=== PATIENT | male | born 1945 | race Caucasian/White ===

== ENCOUNTER 2018-06-18 07:32 | Emergency (ER) | payer OTHER, MEDICARE ==
[2018-06-18] MEDS ORDERED: Lidocaine 2% with EPINEPHrine 1:100,000 20 ML MDV INJECT ONE (07:34)
[2018-06-18] MEDS ORDERED: Take Home: Acetaminophen/HYDROcodone 325-10 MG, 5 Tab Pack PO ONE (07:51)
--- NOTE | 2018-06-18 07:57 | EDM.PDOC ---
ED HPI GENERAL MEDICAL PROBLEM - General Chief Complaint: Laceration Stated Complaint: HEAD INJURY Time Seen by Provider: 06/18/18 07:34 Source of Information: Reports: Patient History Limitations: Reports: No Limitations - History of Present Illness INITIAL COMMENTS - FREE TEXT/NARRATIVE: Patient reports to the ED with complaints of a head laceration after falling and striking his head on a radiator. He also complains of new chest pain after the fall. Worse on inhalation. No current anticoagulation medications except 81 mg ASA daily. No further complaints of abdominal pain, dizziness, confusion , weakness. Has full ROM. Does utilize a walker with ambulation. Brought in by his son. Medical history includes hyperlipidemia, DM II, stent placement 18 years ago, parkinson's, HTN. Onset: Today, Sudden Duration: Intermittent Location: Reports: Head, Chest Severity: Mild Associated Symptoms: Reports: Chest Pain ED ROS GENERAL - Review of Systems Review Of Systems: See Below Constitutional: Reports: No Symptoms HEENT: Reports: No Symptoms Respiratory: Reports: No Symptoms Cardiovascular: Reports: Chest Pain Endocrine: Reports: No Symptoms GI/Abdominal: Reports: No Symptoms : Reports: No Symptoms Musculoskeletal: Reports: No Symptoms Skin: Reports: Wound (2.5 cm laceration) Neurological: Reports: No Symptoms Psychiatric: Reports: No Symptoms Hematologic/Lymphatic: Reports: No Symptoms Immunologic: Reports: No Symptoms ED EXAM, SKIN/RASH Exam: See Below Exam Limited By: No Limitations General Appearance: Alert, WD/WN, No Apparent Distress Eye Exam: Bilateral Eye: EOMI, Normal Inspection, PERRL Ears: Normal TMs Nose: Normal Inspection, Normal Mucosa, No Blood Throat/Mouth: Normal Inspection, Normal Lips, Normal Teeth, Normal Gums, Normal Oropharynx, Normal Voice, No Airway Compromise Head: Atraumatic, Normocephalic Neck: Normal Inspection, Supple, Non-Tender, Full Range of Motion Respiratory/Chest: Other (chest tender) Cardiovascular: Normal Peripheral Pulses GI/Abdominal: Normal Bowel Sounds, Soft, Non-Tender, No Organomegaly, No Distention, No Abnormal Bruit, No Mass Extremities: Normal Inspection, Normal Range of Motion, Non-Tender, No Pedal Edema, Normal Capillary Refill Neurological: Alert, Oriented, CN II-XII Intact, Normal Cognition, Normal Gait, Normal Reflexes, No Motor/Sensory Deficits Psychiatric: Normal Affect, Normal Mood Skin: Warm, Dry, Normal Color, No Rash, Wound/Incision (2.5 cm laceration posterior occiput) Location, Skin: Head Characteristics: Linear Lymphatic: Other (left sided anterior cervical mass - known and non cancerous) ED SKIN PROCEDURES - Laceration/Wound Repair Middle Posterior Head Lac/Wound length In cm: 2.5 Appearance: Linear Distal NVT: Neuro & Vascular Intact Anesthetic Type: Local Local Anesthesia - Lidocaine (Xylocaine): 1% with EPI Local Anesthetic Volume: 4cc Skin Prep: Chlorhexidine (Hibiciens) Saline Irrigation (cc's): 20 Exploration/Debridement/Repair: Wound Explored, In a Bloodless Field, No Foreign Material Found Closed with: Lawrence (6 lawrence) Tetanus Status Addressed: Other (2 years ago) Complications: No Course - Orders/Labs/Meds Orders: Active Orders 24 hr Category Date Time Status Chest 2V [CR] Stat Exams 06/18/18 07:44 Ordered Acetaminophen/HYDROcodone [Take Home: Acetaminophen/ Med 06/18/18 07:51 Once HYDROcodone 325-10MG] 1 packet PO ONETIME ONE Meds: Medications Discontinued Medications Generic Name Dose Route Start Last Admin Trade Name Freq PRN Reason Stop Dose Admin Lidocaine/Epinephrine 20 ml 06/18/18 07:34 06/18/18 07:47 Xylocaine 2% With Epinephrine 1:100,000 INJECT 06/18/18 07:35 20 ml ONETIME ONE Administration - Re-Assessments/Exams Free Text/Narrative Re-Assessment/Exam: 06/18/18 07:59 Head laceration stapled with 6 lawrence. Await chest x-rays to determine possible rib fractures 06/18/18 09:18 Negative chest x-ray Departure - Departure Time of Disposition: 08:42 Disposition: Home, Self-Care 01 Condition: Good Clinical Impression: Laceration of head, Chest pain - Discharge Information *PRESCRIPTION DRUG MONITORING PROGRAM REVIEWED*: No *COPY OF PRESCRIPTION DRUG MONITORING REPORT IN PATIENT MARTIN: No Instructions: Stitches, Lawrence, or Adhesive Wound Closure, [id number], Laceration Care, Adult, [id number] Additional Instructions: Plan 1. Return to the clinic for staple removal in 7-10 days. 2. May shower. Avoid soaking area in standing water such as a pool, hot tub, natural body of water as this can introduce bacteria. 3. Return to the ED if you have any neurologic symptoms such as dizziness, confusion, severe headache, change in speech, facial droop, one sided weakness. 4. Take the hydrocodone 1 tablet by mouth every 4 hours as needed for pain. You can also take ibuprofen or aleve as well. You may also take regular tylenol. Make sure to not take more than 4,000 mg in 24 hours. The hydrocodone includes tylenol/acetaminophen. 5.Please call if you have any additional questions or concerns. - Problem List & Annotations (1) Laceration of head SNOMED Code(s): 396207828 Code(s): S01.91XA - LACERATION W/O FOREIGN BODY OF UNSP PART OF HEAD, INIT Status: Acute Priority: Low Current Visit: Yes Qualifiers: Encounter type: initial encounter Location of open wound of head: other part of head Foreign body presence: without foreign body Qualified Code(s): S01.81XA - Laceration without foreign body of other part of head, initial encounter (2) Chest pain SNOMED Code(s): 08412420 Code(s): R07.9 - CHEST PAIN, UNSPECIFIED Status: Acute Priority: Low Current Visit: Yes Qualifiers: Chest pain type: other chest pain Qualified Code(s): R07.89 - Other chest pain; R07.8 - Other chest pain - Problem List Review Problem List Initiated/Reviewed/Updated: Yes - My Orders Last 24 Hours: My Active Orders 06/18/18 07:44 Chest 2V [CR] Stat 06/18/18 07:51 Acetaminophen/HYDROcodone [Take Home: Acetaminophen/HYDROcodone 325-10MG] 1 packet PO ONETIME ONE - Assessment/Plan Last 24 Hours: My Active Orders 06/18/18 07:44 Chest 2V [CR] Stat 06/18/18 07:51 Acetaminophen/HYDROcodone [Take Home: Acetaminophen/HYDROcodone 325-10MG] 1 packet PO ONETIME ONE Assessment:: Posterior head laceration of the occiput Chest pain secondary to fall Plan: Plan 1. Return to the clinic for staple removal in 7-10 days. 2. May shower. Avoid soaking area in standing water such as a pool, hot tub, natural body of water as this can introduce bacteria. 3. Return to the ED if you have any neurologic symptoms such as dizziness, confusion, severe headache, change in speech, facial droop, one sided weakness. 4. Take the hydrocodone 1 tablet by mouth every 4 hours as needed for pain. You can also take ibuprofen or aleve as well. You may also take regular tylenol. Make sure to not take more than 4,000 mg in 24 hours. The hydrocodone includes tylenol/acetaminophen. 5.Please call if you have any additional questions or concerns.
--- NOTE | 2018-06-19 08:02 | CR ---
[id number] RAD/RAD Chest PA And Lateral EXAM: RAD Chest PA And Lateral INDICATION: FALL, CHEST PAIN COMPARISON: None. DISCUSSION: Cardiomediastinal silhouette is normal in size and contour. No infiltrate, effusion, pneumothorax, or edema. Pulmonary hyperinflation. Left basilar subsegmental atelectasis. Generalized osseous demineralization with multilevel degenerative changes of the thoracic spine. IMPRESSION: No acute cardiopulmonary abnormality. Dejuan Hoffman DO 06/18/18 0840 Thank you for allowing us to participate in the care of your patient.
== END 2018-06-18 08:42 | disposition home or self-care (01) ==
LOC: VM.ED 07:32
DX: S01.01XA Laceration without foreign body of scalp, initial encounter (principal); R07.9 Chest pain, unspecified; W19.XXXA Unspecified fall, initial encounter; W22.8XXA Striking against or struck by other objects, initial encounter
CPT/HCPCS: 12001; 71046; 99283; 99283-GF; A9270-GY

== ENCOUNTER 2018-07-01 15:16 | Emergency (ER) | payer OTHER, MEDICARE ==
--- NOTE | 2018-07-01 15:23 | EDM.PDOC ---
ED HPI GENERAL MEDICAL PROBLEM - General Chief Complaint: Chest Pain Stated Complaint: Left upper chest pain Time Seen by Provider: 07/01/18 15:19 Source of Information: Reports: Patient, Family, RN, RN Notes Reviewed History Limitations: Reports: No Limitations - History of Present Illness INITIAL COMMENTS - FREE TEXT/NARRATIVE: Patient presents the emergency room at [facility] complaining of left upper chest pain. The patient did have a fall a couple of weeks ago in which she hit the back of his head on a cast iron heater. The patient did require lawrence to the occipital scalp. The patient had the lawrence removed last Tuesday. The patient states since then he has felt this upper left chest pain has progressively gotten worse. The patient denies any shortness of breath. The patient has not had any recent falls Chest Pain Score (Numeric/FACES): 8 - Related Data Allergies Allergy/AdvReac Type Severity Reaction Status Date / Time No Known Allergies Allergy Verified 07/01/18 16:36 Home Meds: Home Meds Aspirin [Halfprin] 81 mg DAILY 06/18/18 [History] Carbidopa/Levodopa [Sinemet 25-100 mg Tablet] 3 tab DAILY 06/18/18 [History] Cyanocobalamin (Vitamin B-12) [B-12] 1 tab DAILY 06/18/18 [History] Enalapril Maleate [Vasotec] 20 mg DAILY 06/18/18 [History] HCTZ/Triamterene [Dyazide 25-37.5 MG] 1 tab DAILY 06/18/18 [History] atorvaSTATin [Lipitor] 40 mg DAILY 06/18/18 [History] metFORMIN HCl [Metformin HCl] 500 mg BID 06/18/18 [History] levoFLOXacin [Levaquin] 500 mg PO DAILY 8 Days #8 tab 07/01/18 [Rx] Past Medical History Cardiovascular History: Reports: High Cholesterol, Hypertension Genitourinary History: Reports: Renal Calculus Neurological History: Reports: Parkinson's Endocrine/Metabolic History: Reports: Diabetes, Type II - Past Surgical History Cardiovascular Surgical History: Reports: Coronary Artery Stent GI Surgical History: Reports: Hernia Repair/Other ED ROS GENERAL - Review of Systems Review Of Systems: See Below Constitutional: Reports: Chills. Denies: Fever Respiratory: Reports: Shortness of Breath. Denies: Cough Cardiovascular: Reports: Chest Pain. Denies: Palpitations GI/Abdominal: Denies: Abdominal Pain, Nausea, Vomiting Musculoskeletal: Reports: Muscle Pain, Muscle Stiffness Skin: Reports: No Symptoms Neurological: Reports: No Symptoms ED EXAM, GENERAL - Physical Exam Exam: See Below Exam Limited By: No Limitations General Appearance: Alert, No Apparent Distress Respiratory/Chest: No Respiratory Distress, Decreased Breath Sounds, Crackles Cardiovascular: Normal Peripheral Pulses, Regular Rate, Rhythm Peripheral Pulses: 2+: Radial (L), Radial (R) GI/Abdominal: Normal Bowel Sounds, Soft, Non-Tender Neurological: Alert, Oriented Skin Exam: Warm, Dry, Intact, Normal Color Course - Vital Signs Last Recorded V/S: Last Vital Signs Temp 37.1 C 07/01/18 16:36 Pulse 75 07/01/18 16:36 Resp 18 07/01/18 16:36 BP 110/70 07/01/18 16:36 Pulse Ox 96 07/01/18 16:36 - Orders/Labs/Meds Orders: Active Orders 24 hr Category Date Time Status EKG 12 Lead [EKG Documentation Completion] [RC] STAT Care 07/01/18 15:24 Active Sodium Chloride 0.9% [Saline Flush] Med 07/01/18 15:24 Active 10 ml FLUSH ASDIRECTED PRN Peripheral IV Insertion Adult [OM.PC] Routine Oth 07/01/18 15:24 Ordered Medication Orders Sodium Chloride (Saline Flush) 10 ml FLUSH ASDIRECTED PRN PRN Reason: Keep Vein Open Labs: Laboratory Tests 07/01/18 07/01/18 07/01/18 Range/Units 15:26 15:26 15:26 WBC 10.5 H (4.0-10.0) x10^3/uL RBC 5.46 (4.5-6.0) x10^6/uL Hgb 16.6 (14.0-18.0) g/dL Hct 49.2 (40.0-52.0) % MCV 90.1 (78.0-93.0) fL MCH 30.4 (26.0-32.0) pg MCHC 33.7 (32.0-36.0) g/dL RDW Coeff of Ace 14.3 (10.0-15.0) % Plt Count 260 (130-400) x10^3/uL Add Manual Diff Yes Neutrophils % (Manual) 64 (50-80) % Lymphocytes % (Manual) 15 L (25-50) % Reactive Lymphs % 6 H (0) % Monocytes % (Manual) 12 H (2-11) % Eosinophils % (Manual) 3 (0-4) % Platelet Estimate Adequate PT 10.5 (9.6-11.4) SEC INR 1.0 L (2.0-3.5) Sodium 140 (136-145) mmol/L Potassium 3.7 (3.5-5.1) mmol/L Chloride 100 (98-107) mmol/L Carbon Dioxide 30 (21-32) mmol/L Anion Gap 13.7 (10-20) mmol/L BUN 16 (7-18) mg/dL Creatinine 1.2 (0.70-1.30) mg/dL Est Cr Clr Drug Dosing TNP Estimated GFR (MDRD) 60 Glucose 87 (74-106) mg/dL Calcium 9.6 (8.5-10.1) mg/dL Corrected Calcium 9.60 (8.5-10.1) mg/dL Total Bilirubin 0.6 (0.2-1.0) mg/dL AST 16 (15-37) U/L ALT 22 (16-63) U/L Alkaline Phosphatase 119 H (46-116) U/L Creatine Kinase 75 (39-308) U/L POC Troponin I (0.00-0.08) ng/mL Total Protein 8.0 (6.4-8.2) g/dL Albumin 4.0 (3.4-5.0) g/dL Globulin 4.0 Albumin/Globulin Ratio 1.00 Urine Color (YELLOW) Urine Appearance (CLEAR) Urine pH (5.0-8.0) Ur Specific [place] Urine Protein (NEGATIVE) mg/dL Urine Glucose (UA) (NEGATIVE) mg/dL Urine Ketones (NEGATIVE) mg/dL Urine Occult Blood (NEGATIVE) Urine Nitrite (NEGATIVE) Urine Bilirubin (NEGATIVE) Urine Urobilinogen (0.2) EU/dL Ur Leukocyte Esterase (NEGATIVE) Urine RBC (NOT SEEN) /HPF Urine WBC (NOT SEEN) /HPF Ur Squamous Epith Cells (NEGATIVE) /HPF Urine Bacteria (NEGATIVE) /HPF Urine Mucus (NEGATIVE) /LPF 07/01/18 07/01/18 Range/Units 15:40 16:00 WBC (4.0-10.0) x10^3/uL RBC (4.5-6.0) x10^6/uL Hgb (14.0-18.0) g/dL Hct (40.0-52.0) % MCV (78.0-93.0) fL MCH (26.0-32.0) pg MCHC (32.0-36.0) g/dL RDW Coeff of Ace (10.0-15.0) % Plt Count (130-400) x10^3/uL Add Manual Diff Neutrophils % (Manual) (50-80) % Lymphocytes % (Manual) (25-50) % Reactive Lymphs % (0) % Monocytes % (Manual) (2-11) % Eosinophils % (Manual) (0-4) % Platelet Estimate PT (9.6-11.4) SEC INR (2.0-3.5) Sodium (136-145) mmol/L Potassium (3.5-5.1) mmol/L Chloride (98-107) mmol/L Carbon Dioxide (21-32) mmol/L Anion Gap (10-20) mmol/L BUN (7-18) mg/dL Creatinine (0.70-1.30) mg/dL Est Cr Clr Drug Dosing Estimated GFR (MDRD) Glucose (74-106) mg/dL Calcium (8.5-10.1) mg/dL Corrected Calcium (8.5-10.1) mg/dL Total Bilirubin (0.2-1.0) mg/dL AST (15-37) U/L ALT (16-63) U/L Alkaline Phosphatase (46-116) U/L Creatine Kinase (39-308) U/L POC Troponin I 0.01 (0.00-0.08) ng/mL Total Protein (6.4-8.2) g/dL Albumin (3.4-5.0) g/dL Globulin Albumin/Globulin Ratio Urine Color Yellow (YELLOW) Urine Appearance Clear (CLEAR) Urine pH 6.0 (5.0-8.0) Ur Specific [place] 1.020 Urine Protein Negative (NEGATIVE) mg/dL Urine Glucose (UA) Negative (NEGATIVE) mg/dL Urine Ketones Negative (NEGATIVE) mg/dL Urine Occult Blood Moderate H (NEGATIVE) Urine Nitrite Negative (NEGATIVE) Urine Bilirubin Negative (NEGATIVE) Urine Urobilinogen 1.0 (0.2) EU/dL Ur Leukocyte Esterase Negative (NEGATIVE) Urine RBC 10-20 H (NOT SEEN) /HPF Urine WBC Not seen (NOT SEEN) /HPF Ur Squamous Epith Cells Not seen (NEGATIVE) /HPF Urine Bacteria Not seen (NEGATIVE) /HPF Urine Mucus Not seen (NEGATIVE) /LPF Meds: Medications Generic Name Dose Route Start Last Admin Trade Name Freq PRN Reason Stop Dose Admin Sodium Chloride 10 ml 07/01/18 15:24 Saline Flush FLUSH ASDIRECTED PRN Keep Vein Open Discontinued Medications Generic Name Dose Route Start Last Admin Trade Name Freq PRN Reason Stop Dose Admin Sodium Chloride 1,000 mls @ 999 mls/hr 07/01/18 15:25 07/01/18 15:45 Normal Saline IV 07/01/18 16:25 999 mls/hr ONETIME ONE Administration Morphine Sulfate 4 mg 07/01/18 15:25 07/01/18 15:45 Morphine IVPUSH 07/01/18 15:26 4 mg ONETIME ONE Administration Ondansetron HCl 4 mg 07/01/18 15:25 07/01/18 15:45 Zofran IVPUSH 07/01/18 15:26 4 mg ONETIME ONE Administration - Radiology Interpretation Free Text/Narrative:: CXR: New mild left mid lung infiltrates See scanned report in EMR Departure - Departure Time of Disposition: 16:53 Disposition: Home, Self-Care 01 Reason for Transfer *Q: Other Condition: Good Clinical Impression: CAP (community acquired pneumonia) Qualifiers: Laterality: left Lung location: lower lobe of lung Qualified Code(s): J18.1 - Lobar pneumonia, unspecified organism Prescriptions: levoFLOXacin [Levaquin] 500 mg PO DAILY 8 Days #8 tab Instructions: Community-Acquired Pneumonia, Adult Referrals: Mariaelena Lewis MD [Primary Care Provider] - Forms: ED Department Discharge Additional Instructions: 1. Stay well hydrated and rest 2. Take antibiotics for the full coarse, even if you are feeling better 3. STOP smoking 4. Cough and deep breath 5. Get in touch with your PCP on Tuesday regarding other questions you may have 6. Tylenol/Advil as needed for pain - Problem List Review Problem List Initiated/Reviewed/Updated: Yes - My Orders Last 24 Hours: My Active Orders 07/01/18 15:24 EKG 12 Lead [EKG Documentation Completion] [RC] STAT Sodium Chloride 0.9% [Saline Flush] 10 ml FLUSH ASDIRECTED PRN Peripheral IV Insertion Adult [OM.PC] Routine - Assessment/Plan Last 24 Hours: My Active Orders 07/01/18 15:24 EKG 12 Lead [EKG Documentation Completion] [RC] STAT Sodium Chloride 0.9% [Saline Flush] 10 ml FLUSH ASDIRECTED PRN Peripheral IV Insertion Adult [OM.PC] Routine Assessment:: CAP Thoracic compression fractures Plan: All testing results discussed with patient. New finding of pneumonia, other results were expected. Will start patient on abx therapy. Discussed C/DB, stop smoking. Patient needs to f/u with PCP this week for a recheck.
[2018-07-01] MEDS ORDERED: Sodium Chloride 0.9% 10 ML Syringe FLUSH PRN (15:24)
[2018-07-01] MEDS ORDERED: Sodium Chloride 0.9% 1,000 ML IV ONE (15:25)
[2018-07-01] MEDS ORDERED: Morphine 4 MG/ML Syringe IVPUSH ONE (15:25)
[2018-07-01] MEDS ORDERED: Ondansetron 4 MG/2 ML SDV IVPUSH ONE (15:25)
[2018-07-01 15:56] LABS: CHLORIDE,CL 100 mmol/L (98-107); SODIUM,NA 140 mmol/L (136-145)
[2018-07-01 15:57] LABS: ANION GAP 13.7 mmol/L (10-20)
--- NOTE | 2018-07-01 16:00 | CR ---
[id number] RAD/RAD Chest PA And Lateral EXAM: FRONTAL AND LATERAL CHEST INDICATION: Chest pain. COMPARISON: June 18, 2018. DISCUSSION: Mild left mid lung infiltrates new relative to the prior study. Mild subsegmental atelectasis in the lung bases. Normal heart size. Trace thoracic aorta. Mildly accentuated thoracic kyphosis with multiple mild thoracic compression fractures which are similar to the previous examination. IMPRESSION: 1. New mild left mid lung infiltrates. Rashel Moreno MD 07/01/18 3400 Thank you for allowing us to participate in the care of your patient.
[2018-07-01] MEDS ORDERED: Take Home: Levofloxacin 500 MG Tab, 1 Tab Pack PO ONE (16:55)
== END 2018-07-01 17:15 | disposition home or self-care (01) ==
LOC: VM.ED 15:16
DX: J18.1 Lobar pneumonia, unspecified organism (principal); S22.009A Unspecified fracture of unspecified thoracic vertebra, initial encounter for closed fracture; E78.00 Pure hypercholesterolemia, unspecified; I10 Essential (primary) hypertension; G20 Parkinson's disease; R91.8 Other nonspecific abnormal finding of lung field; F17.210 Nicotine dependence, cigarettes, uncomplicated; E11.9 Type 2 diabetes mellitus without complications; Z95.5 Presence of coronary angioplasty implant and graft; Z79.82 Long term (current) use of aspirin; Z79.899 Other long term (current) drug therapy; W18.00XA Striking against unspecified object with subsequent fall, initial encounter; Z79.84 Long term (current) use of oral hypoglycemic drugs
CPT/HCPCS: 71046; 80053; 81001; 82550; 84484; 85025; 85610; 93005; 96361; 96374; 96375; 99285; A9270; J2270; J2405; J7030

== ENCOUNTER 2018-11-04 01:17 | Emergency (ER) | payer OTHER, MEDICARE ==
--- NOTE | 2018-11-04 01:42 | EDM.PDOC ---
ED HPI GENERAL MEDICAL PROBLEM - General Chief Complaint: General Stated Complaint: epigastric pain Time Seen by Provider: 11/04/18 01:17 Source of Information: Reports: Patient, Family History Limitations: Reports: No Limitations - History of Present Illness INITIAL COMMENTS - FREE TEXT/NARRATIVE: Patient comes into the emergency department with epigastric discomfort. Patient states it has been going on for greater than 1 week. He states that it has progressed and has significantly gotten worse today. He states that it hurts to lay down, hurts to turn, and he describes the pain as sharp/shooting/cramping sensation in the midepigastric area. He denies any chest pain or radiation to the jaw or neck. He states that he is short of breath however he was diagnosed with pneumonia earlier in the week and states that it has not progressed or gotten any worse then when he was initially assessed and started on antibiotics. He is on azithromycin and prednisone. He's got 1 day left of both medications. He denies having any fever, nausea or vomiting, or lower extremity edema. Patient also denies any radiation to the flank region. Onset: Gradual Location: Reports: Abdomen Quality: Reports: Ache, Burning, Throbbing Severity: Moderate Improves with: Reports: Immobilization Worsens with: Reports: Movement Associated Symptoms: Reports: No Other Symptoms - Related Data Allergies Allergy/AdvReac Type Severity Reaction Status Date / Time No Known Allergies Allergy Verified 11/04/18 01:18 Home Meds: Home Meds Aspirin [Halfprin] 81 mg DAILY 06/18/18 [History] Carbidopa/Levodopa [Sinemet 25-100 mg Tablet] 3 tab DAILY 06/18/18 [History] Cyanocobalamin (Vitamin B-12) [B-12] 1 tab DAILY 06/18/18 [History] Enalapril Maleate [Vasotec] 20 mg DAILY 06/18/18 [History] HCTZ/Triamterene [Dyazide 25-37.5 MG] 1 tab DAILY 06/18/18 [History] atorvaSTATin [Lipitor] 40 mg DAILY 06/18/18 [History] metFORMIN HCl [Metformin HCl] 500 mg BID 06/18/18 [History] levoFLOXacin [Levaquin] 500 mg PO DAILY 8 Days #8 tab 07/01/18 [Rx] Azithromycin [Zithromax] 250 mg PO DAILY 11/04/18 [History] predniSONE 20 mg PO DAILY 11/04/18 [History] Past Medical History Cardiovascular History: Reports: High Cholesterol, Hypertension Genitourinary History: Reports: Renal Calculus Neurological History: Reports: Parkinson's Endocrine/Metabolic History: Reports: Diabetes, Type II - Past Surgical History Cardiovascular Surgical History: Reports: Coronary Artery Stent GI Surgical History: Reports: Hernia Repair/Other Social & Family History - Family History Family Medical History: Noncontributory ED ROS GENERAL - Review of Systems Review Of Systems: See Below Constitutional: Reports: No Symptoms HEENT: Reports: No Symptoms Respiratory: Reports: No Symptoms Cardiovascular: Reports: No Symptoms Endocrine: Reports: No Symptoms GI/Abdominal: Reports: Abdominal Pain : Reports: No Symptoms Musculoskeletal: Reports: No Symptoms Skin: Reports: No Symptoms ED EXAM, GENERAL - Physical Exam Exam: See Below Exam Limited By: No Limitations General Appearance: Alert, WD/WN, No Apparent Distress Head: Atraumatic, Normocephalic Neck: Normal Inspection, Supple, Non-Tender Respiratory/Chest: No Respiratory Distress, Lungs Clear, Normal Breath Sounds, No Accessory Muscle Use Cardiovascular: Normal Peripheral Pulses, Regular Rate, Rhythm GI/Abdominal: Distended, Guarding, Rebound, Tender Back Exam: Normal Inspection, Full Range of Motion Extremities: Normal Inspection, Normal Range of Motion, Non-Tender, No Pedal Edema, Normal Capillary Refill Neurological: Alert, Oriented, Normal Gait Psychiatric: Normal Affect, Normal Mood Skin Exam: Warm, Dry, Intact, Normal Color Course - Vital Signs Last Recorded V/S: Last Vital Signs Temp 36.6 C 11/04/18 01:18 Pulse 61 11/04/18 01:18 Resp 20 11/04/18 01:18 BP Pulse Ox 93 L 11/04/18 01:18 - Orders/Labs/Meds Orders: Active Orders 24 hr Category Date Time Status Abdomen Pelvis wo Cont [CT] Stat Exams 11/04/18 01:24 Taken Chest 1V Frontal [CR] Stat Exams 11/04/18 01:26 Taken Ketorolac [Toradol] Med 11/04/18 03:23 Once 10 mg PO ONETIME ONE Medication Orders Ketorolac Tromethamine (Toradol) 10 mg PO ONETIME ONE Stop: 11/04/18 03:24 Labs: Laboratory Tests 06/22/19 06/22/19 Range/Units 01:26 01:26 WBC 13.7 H (4.0-10.0) x10^3/uL RBC 5.20 (4.5-6.0) x10^6/uL Hgb 15.3 (14.0-18.0) g/dL Hct 45.3 (40.0-52.0) % MCV 87.1 D (78.0-93.0) fL MCH 29.4 (26.0-32.0) pg MCHC 33.8 (32.0-36.0) g/dL RDW Coeff of Ace 14.5 (10.0-15.0) % Plt Count 208 (130-400) x10^3/uL Add Manual Diff Yes Neutrophils % (Manual) 88 H (50-80) % Lymphocytes % (Manual) 6 L (25-50) % Monocytes % (Manual) 6 (2-11) % Platelet Estimate Adequate Sodium 143 (136-145) mmol/L Potassium 3.4 L (3.5-5.1) mmol/L Chloride 103 (98-107) mmol/L Carbon Dioxide 27 (21-32) mmol/L Anion Gap 16.4 (10-20) mmol/L BUN 22 H (7-18) mg/dL Creatinine 1.0 (0.70-1.30) mg/dL Est Cr Clr Drug Dosing TNP Estimated GFR (MDRD) > 60 Glucose 134 H (74-106) mg/dL Calcium 8.5 (8.5-10.1) mg/dL Corrected Calcium 8.90 (8.5-10.1) mg/dL Total Bilirubin 0.5 (0.2-1.0) mg/dL AST 18 (15-37) U/L ALT 9 L (16-63) U/L Alkaline Phosphatase 174 H (46-116) U/L Troponin I < 0.017 (<=0.056) ng/mL NT-Pro-B Natriuret Pep 313 H (<=125) pg/mL Total Protein 7.3 (6.4-8.2) g/dL Albumin 3.5 (3.4-5.0) g/dL Globulin 3.8 Albumin/Globulin Ratio 0.92 Amylase 43 (25-115) U/L Lipase 102 (73-393) U/L Meds: Medications Generic Name Dose Route Start Last Admin Trade Name Freq PRN Reason Stop Dose Admin Ketorolac Tromethamine 10 mg 11/04/18 03:23 Toradol PO 11/04/18 03:24 ONETIME ONE Discontinued Medications Generic Name Dose Route Start Last Admin Trade Name Walkerq PRN Reason Stop Dose Admin Al Hydroxide/Mg Hydroxide 30 ml 11/04/18 01:23 11/04/18 02:01 Gi Cocktail PO 11/04/18 01:24 30 ml ONETIME ONE Administration Departure - Departure Time of Disposition: 03:24 Disposition: Home, Self-Care 01 Condition: Good Clinical Impression: Chest pain, pleuritic, Generalized abdominal pain - Discharge Information *PRESCRIPTION DRUG MONITORING PROGRAM REVIEWED*: Not Applicable *COPY OF PRESCRIPTION DRUG MONITORING REPORT IN PATIENT MARTIN: Not Applicable Instructions: Costochondritis, [id number], Nonspecific Chest Pain, Abdominal Pain, Adult, [id number] Referrals: PCP,None [Primary Care Provider] - Forms: ED Department Discharge Additional Instructions: 1. rest 2. Reduce your smoking 3. sleep in position of comfort 4. Finish antibiotics as prescribed 5. Can take [id number] pain medications help with discomfort 6. Can alternate between ice and heat 20 minutes at a time 3-4 times a day to help with discomfort/pain 7. Follow-up with primary care provider if not better in 3 or 4 days 8. Call with any questions or concerns - My Orders Last 24 Hours: My Active Orders 11/04/18 01:24 Abdomen Pelvis wo Cont [CT] Stat 11/04/18 01:26 Chest 1V Frontal [CR] Stat 11/04/18 03:23 Ketorolac [Toradol] 10 mg PO ONETIME ONE - Assessment/Plan Last 24 Hours: My Active Orders 11/04/18 01:24 Abdomen Pelvis wo Cont [CT] Stat 11/04/18 01:26 Chest 1V Frontal [CR] Stat 11/04/18 03:23 Ketorolac [Toradol] 10 mg PO ONETIME ONE Assessment:: 1. abdominal pain Plan: 1. Labs completed in the ER. Results reviewed with the patient 2. CT scan completed in the ER. Results reviewed with patient 3. GI cocktail given in the ER. 4. EKG completed in the ER. Results reviewed with the patient 5. Chest x-ray completed in ER. Results reviewed with patient 6. Education regarding activity, diet, smoking, antibiotic and follow up care provided 7. All questions and concerns addressed prior to discharge.
[2018-11-04] MEDS: GI Cocktail Oral Solution 30 ML PO ONE (02:01)
[2018-11-04 02:10] LABS: ANION GAP 16.4 mmol/L (10-20); CHLORIDE,CL 103 mmol/L (98-107); SODIUM,NA 143 mmol/L (136-145)
[2018-11-04] MEDS: Ketorolac 10 MG Tab PO ONE (03:31)
--- NOTE | 2018-11-04 10:24 | CT ---
[id number] CT/CT Abdomen Pelvis WO IV EXAM: CT Abdomen Pelvis WO IV CLINICAL DATA: EPIGASTRIC PAIN COMPARISON STUDY: None. FINDINGS: Dependent atelectasis at the lung bases bilaterally. Multiple pneumatoceles at the lung bases. The heart is enlarged. A few hypodensities within the liver with the largest measuring up to 1.5 cm within the right hepatic lobe. These are not completely evaluated on this study but are most consistent with cysts. The liver is otherwise unremarkable. The spleen, gallbladder, pancreas and adrenal glands are unremarkable. Multiple left renal stones. The largest is within the upper pole and measures up to 1.2 cm. No evidence of obstruction. No stones within the ureters. No stones within the bladder. Bilateral renal cysts. No bowel obstruction or inflammation. Colonic diverticulosis without evidence of acute diverticulitis. The appendix is visualized and appears normal. No lymphadenopathy, free fluid, or pneumoperitoneum. Mild circumferential thickening of the bladder likely secondary to chronic elevation obstruction in the setting of enlarged prostate. Atherosclerotic calcifications of the aorta and its branches. The left common iliac artery measures up to 1.9 cm. Scattered changes of spondylosis the spine. No fracture or osseous lesion. IMPRESSION: 1. Left nephrolithiasis without evidence of obstruction. Otherwise, no acute CT findings within the abdomen or pelvis to explain the patient's symptoms. Dejuan Hoffman DO 11/04/18 [id number] Thank you for allowing us to participate in the care of your patient.
--- NOTE | 2018-11-04 10:26 | CR ---
[id number] RAD/RAD Chest PA or AP 1V EXAM: RAD Chest PA or AP 1V INDICATION: EPIGASTRIC PAIN COMPARISON: 07/01/2018. DISCUSSION: The heart is borderline enlarged. The aorta is elongated. No infiltrate, effusion, pneumothorax, or edema. Bibasilar subsegmental atelectasis. IMPRESSION: No acute cardiopulmonary abnormality. Dejuan Hoffman DO 11/04/18 1025 Thank you for allowing us to participate in the care of your patient.
== END 2018-11-04 03:36 | disposition home or self-care (01) ==
LOC: VM.ED 01:17
DX: R07.81 Pleurodynia (principal); R10.13 Epigastric pain; I10 Essential (primary) hypertension; E11.9 Type 2 diabetes mellitus without complications; Z79.82 Long term (current) use of aspirin; Z79.84 Long term (current) use of oral hypoglycemic drugs; Z79.899 Other long term (current) drug therapy; Z95.5 Presence of coronary angioplasty implant and graft
CPT/HCPCS: 36415; 71045; 74176; 80053; 82150; 83690; 83880; 84484; 85025; 93005; 99285; A9270; 99284-GF

== ENCOUNTER 2018-11-20 11:37 | Emergency (ER) | payer OTHER, MEDICARE ==
[2018-11-20 12:53] LABS: CHLORIDE,CL 104 mmol/L (98-107); SODIUM,NA 145 mmol/L (136-145)
--- NOTE | 2018-11-20 13:31 | CR ---
[id number] RAD/RAD Chest PA or AP 1V EXAM: RAD Chest PA or AP 1V INDICATION: CHEST PAIN. COMPARISON: November 04, 2018. DISCUSSION: Mild cardiomegaly and central vascular congestion is seen, unchanged from the prior examination. No infiltrate, effusion, pneumothorax, or edema. IMPRESSION: No acute findings or significant change from the prior examination. Nick Garcia MD 11/20/18 [id number] Thank you for allowing us to participate in the care of your patient.
--- NOTE | 2018-11-20 13:59 | EDM.PDOC ---
ED HPI GENERAL MEDICAL PROBLEM - General Chief Complaint: Chest Pain Stated Complaint: CHEST PAIN Time Seen by Provider: 11/20/18 11:40 Source of Information: Reports: Patient History Limitations: Reports: No Limitations - History of Present Illness INITIAL COMMENTS - FREE TEXT/NARRATIVE: Pt. presents to ER with over 1 month history of respirophasic chest pain. Pt. denies any fever or chills. He states that he has Parkinson's disease and and is prone to falls. Pt. states that he fell recently and fell onto his walker striking his chest. He has been falling frequently and son indicates that this could be continuting to the discomfort. [facility] and they advised he come to ER to rule out any life threats. Pt. states that he is chronically short of breath. Denies any cough or chest congestion. The pain is respirophasic in nature and made worse with deep breathing. Denies any nausea of vomiting. No diaphoresis. Location: Reports: Chest Quality: Reports: Ache, Sharp Severity: Moderate Improves with: Reports: Rest Worsens with: Reports: Movement Context: Reports: Activity Mid-Sternal Chest Pain Score (Numeric/FACES): 7 - Related Data Allergies Allergy/AdvReac Type Severity Reaction Status Date / Time No Known Allergies Allergy Verified 11/20/18 13:30 Home Meds: Home Meds Aspirin [Halfprin] 81 mg DAILY 06/18/18 [History] Carbidopa/Levodopa [Sinemet 25-100 mg Tablet] 3 tab DAILY 06/18/18 [History] Cyanocobalamin (Vitamin B-12) [B-12] 1 tab DAILY 06/18/18 [History] atorvaSTATin [Lipitor] 40 mg DAILY 06/18/18 [History] Albuterol Sulfate [Albuterol Sulfate Hfa] 2 puff IH Q4H PRN 11/20/18 [History] Sertraline [Zoloft] 50 mg PO DAILY 11/20/18 [History] Past Medical History Cardiovascular History: Reports: High Cholesterol, Hypertension Respiratory History: Reports: COPD Genitourinary History: Reports: Renal Calculus Neurological History: Reports: Parkinson's Endocrine/Metabolic History: Reports: Diabetes, Type II - Past Surgical History Cardiovascular Surgical History: Reports: Coronary Artery Stent GI Surgical History: Reports: Hernia Repair/Other Social & Family History - Family History Family Medical History: Noncontributory - Tobacco Use Smoking Status *Q: Current Every Day Smoker Years of Tobacco use: 60 Packs/Tins Daily: 1 - Recreational Drug Use Recreational Drug Use: No ED ROS GENERAL - Review of Systems Review Of Systems: See Below Constitutional: Reports: No Symptoms HEENT: Reports: No Symptoms Respiratory: Reports: Pleuritic Chest Pain Cardiovascular: Reports: No Symptoms Endocrine: Reports: No Symptoms GI/Abdominal: Reports: No Symptoms : Reports: No Symptoms Musculoskeletal: Reports: Other (chest pain) Skin: Reports: No Symptoms Neurological: Reports: No Symptoms Psychiatric: Reports: No Symptoms Hematologic/Lymphatic: Reports: No Symptoms Immunologic: Reports: No Symptoms ED EXAM, GENERAL - Physical Exam Exam: See Below Exam Limited By: No Limitations General Appearance: Alert, WD/WN, No Apparent Distress Head: Atraumatic, Normocephalic Neck: Normal Inspection, Supple Respiratory/Chest: No Respiratory Distress, Lungs Clear, Normal Breath Sounds, No Accessory Muscle Use, Other (acute anterior chest wall pain) Cardiovascular: Normal Peripheral Pulses, Regular Rate, Rhythm, No Edema, No JVD , No Murmur Peripheral Pulses: 4+: Radial (R) GI/Abdominal: Normal Bowel Sounds, Soft, Non-Tender, No Organomegaly, No Distention (Male) Exam: Deferred Rectal (Males) Exam: Deferred Back Exam: Normal Inspection, Full Range of Motion Extremities: Normal Inspection, Normal Range of Motion, Non-Tender, No Pedal Edema, Normal Capillary Refill Neurological: Alert, Oriented, CN II-XII Intact, Normal Cognition, Normal Reflexes, No Motor/Sensory Deficits Psychiatric: Normal Affect, Normal Mood Skin Exam: Warm, Dry, Intact, Normal Color, No Rash Lymphatic: No Adenopathy EKG INTERPRETATION Rhythm: NSR [place]: Normal P-Wave: Present QRS: Normal ST-T: Normal QT: Normal Comparison: No Change Course - Vital Signs Last Recorded V/S: Last Vital Signs Temp 37.1 C 11/20/18 11:40 Pulse 73 11/20/18 11:40 Resp 16 11/20/18 11:40 BP 135/73 11/20/18 11:40 Pulse Ox 94 L 11/20/18 11:40 - Orders/Labs/Meds Orders: Active Orders 24 hr Category Date Time Status EKG Documentation Completion [RC] STAT Care 11/20/18 12:04 Ordered Labs: Laboratory Tests 11/20/18 11/20/18 11/20/18 Range/Units 12:16 12:16 12:16 WBC 6.4 (4.0-10.0) x10^3/uL RBC 5.14 (4.5-6.0) x10^6/uL Hgb 15.3 (14.0-18.0) g/dL Hct 45.0 (40.0-52.0) % MCV 87.5 (78.0-93.0) fL MCH 29.8 (26.0-32.0) pg MCHC 34.0 (32.0-36.0) g/dL RDW Coeff of Ace 14.6 (10.0-15.0) % Plt Count 177 (130-400) x10^3/uL Neut % (Auto) 75.1 (50.0-80.0) % Lymph % (Auto) 12.3 L (25.0-50.0) % Leon % (Auto) 10.0 (2.0-11.0) % Eos % (Auto) 2.3 (0.0-4.0) % Baso % (Auto) 0.3 (0.2-1.2) % PT 11.4 (10.0-12.8) SEC INR 1.0 L (2.0-3.5) Sodium 145 (136-145) mmol/L Potassium 3.0 L (3.5-5.1) mmol/L Chloride 104 (98-107) mmol/L Carbon Dioxide 32 (21-32) mmol/L Anion Gap 12.0 (10-20) mmol/L BUN 12 (7-18) mg/dL Creatinine 1.0 (0.70-1.30) mg/dL Est Cr Clr Drug Dosing TNP Estimated GFR (MDRD) > 60 Glucose 128 H (74-106) mg/dL Calcium 9.0 (8.5-10.1) mg/dL Corrected Calcium 9.40 (8.5-10.1) mg/dL Phosphorus 2.8 (2.6-4.7) mg/dL Magnesium 1.9 (1.8-2.4) mg/dL Total Bilirubin 1.0 (0.2-1.0) mg/dL AST 22 (15-37) U/L ALT 7 L (16-63) U/L Alkaline Phosphatase 157 H (46-116) U/L Troponin I < 0.017 (<=0.056) ng/mL Total Protein 7.0 (6.4-8.2) g/dL Albumin 3.5 (3.4-5.0) g/dL Globulin 3.5 Albumin/Globulin Ratio 1.00 - Radiology Interpretation Free Text/Narrative:: No acute pathology. Unchanged from previous. Mild cardiomegaly. Hyperinflation. No obvious rib fractures, infiltrate, pneumothorax or other pathology. Departure - Departure Time of Disposition: 14:02 Disposition: Home, Self-Care 01 Clinical Impression: Atypical chest pain - Discharge Information Instructions: Nonspecific Chest Pain, [id number] Referrals: PCP,Unknown [Primary Care Provider] - Forms: ED Department Discharge Additional Instructions: Prednisone 40mg once daily Try a heating pad for the pain Quit smoking. You do have evidence of COPD. Often people with COPD have chronic chest discomfort. Follow-up for recheck at [facility] in 10-14 days - Problem List Review Problem List Initiated/Reviewed/Updated: Yes - My Orders Last 24 Hours: My Active Orders 11/20/18 12:04 EKG Documentation Completion [RC] STAT - Assessment/Plan Last 24 Hours: My Active Orders 11/20/18 12:04 EKG Documentation Completion [RC] STAT Plan: No obvious life threatening pathology noted during ER visit today. I did start the patient on some prednisone 40mg every day for 6 day in the event that he has some costochondritis. He is very prone to falls, and fell in the ER today at time of discharge. This could very well be exacerbating the injury when he fell onto his walker. Advised him to follow[facility] if he is still having symptoms. He may need a CT scan if he is still having symptoms. Use heating pad. Return to ER if short of breath, worsening pain in chest, jaw, arms, neck or back.
== END 2018-11-20 13:50 | disposition home or self-care (01) ==
LOC: VM.ED 11:37
DX: R07.2 Precordial pain (principal); E78.00 Pure hypercholesterolemia, unspecified; I10 Essential (primary) hypertension; J44.9 Chronic obstructive pulmonary disease, unspecified; E11.9 Type 2 diabetes mellitus without complications; F17.210 Nicotine dependence, cigarettes, uncomplicated; Z79.82 Long term (current) use of aspirin; Z79.899 Other long term (current) drug therapy
CPT/HCPCS: 36415; 71045; 80053; 83735; 84100; 84484; 85025; 85610; 93005; 93010; 99284-GF; 99285-25

== ENCOUNTER 2018-12-04 14:09 | Emergency (ER) | payer OTHER, MEDICARE ==
[2018-12-04 15:13] LABS: CHLORIDE,CL 104 mmol/L (98-107); SODIUM,NA 144 mmol/L (136-145)
[2018-12-04 15:15] LABS: ANION GAP 14.1 mmol/L (10-20)
[2018-12-04] MEDS ORDERED: Ondansetron 4 MG/2 ML SDV IVPUSH ONE (15:15)
[2018-12-04] MEDS ORDERED: Morphine 4 MG/ML Syringe IVPUSH ONE ×2 (15:15→16:19)
--- NOTE | 2018-12-04 15:33 | CT ---
[id number] CT/CT Head WO IV EXAM: CT Head WO IV CLINICAL DATA: FALL, STRUCK HEAD. COMPARISON STUDY: None FINDINGS: No intracranial hemorrhage, extra-axial fluid collection, mass, or acute ischemia. Generalized parenchymal atrophy with scattered areas of nonspecific white matter disease, commonly seen as sequela of chronic microvascular ischemia. Dense cortical calcification in the right frontal lobe, nonspecific in etiology. Heterogeneous 45 x 46 mm mass centered in the left parotid region extending down the [id number]. Findings are nonspecific and likely underlying neoplasm or hematoma. Correlate for site of trauma. IMPRESSION: No acute intracranial findings. Other findings are described above. Nick Garcia MD 12/04/18 [id number] Thank you for allowing us to participate in the care of your patient.
--- NOTE | 2018-12-04 15:33 | CR ---
[id number] RAD/RAD Chest PA or AP 1V EXAM: RAD Chest PA or AP 1V INDICATION: FALL. COMPARISON: None. DISCUSSION: Cardiomediastinal silhouette is stable in size and contour. No infiltrate, effusion, pneumothorax, or edema. Pulmonary hyperinflation. No radiographic evidence of acute rib fracture. IMPRESSION: No radiographic evidence of acute rib fracture. No pneumothorax. Dejuan Hoffman DO 12/04/18 1532 Thank you for allowing us to participate in the care of your patient.
--- NOTE | 2018-12-04 15:42 | CT ---
[id number] CT/CT Lumbar Spine WO IV Exam: CT Lumbar Spine WO IV Indication:LOW BACK PAIN POST FALL. Comparison: No prior imaging for comparison. Discussion: Acute mild to moderate compression fracture of L1. There is approximately 50% vertebral body height loss. No significant bony retropulsion of the posterior vertebral body cortex. Posterior elements are intact. Small amount of hemorrhage in the adjacent soft tissues. No other fractures identified. Extensive colonic diverticulosis. Impression: Acute L1 compression fracture. Nick Garcia MD 12/04/18 1547 Thank you for allowing us to participate in the care of your patient.
--- NOTE | 2018-12-04 16:02 | EDM.PDOC ---
ED HPI GENERAL MEDICAL PROBLEM - General Chief Complaint: Back Pain or Injury Time Seen by Provider: 12/04/18 14:10 Source of Information: Reports: Patient, EMS, EMS Notes Reviewed, Family History Limitations: Reports: No Limitations - History of Present Illness INITIAL COMMENTS - FREE TEXT/NARRATIVE: Pt. presents to ER with complaints of low back pain post fall. Pt. states that he had just prepared some food and fell backwards, landing on his backside. Pt. reports severe low back pain post fall. He denies any lightheadedness, chest pain, shortness of breath, or palpitations prior to the fall. EMS was summoned. Pt. was noted to have an episode of heart rate decrease to approx. 30 during transport, but the patient was asymptomatic prior to this. Pt. has a history of Parkinson's disease and is having problems with progressive weakness, difficulty with ambulation, and frequent falls. Family states that he has fallen 4 times in the past month. Pt. states that he has been having some chest pain discomfort after falling approx. 3 weeks ago. Pt. denies any fever or chills. No dysuria. No abdominal pain. Denies any bloody stools. No nausea, vomiting, or diarrhea. Onset: Today Onset Date: 12/04/18 Location: Reports: Back Quality: Reports: Ache, Sharp Severity: Severe Worsens with: Reports: Movement - Related Data Allergies Allergy/AdvReac Type Severity Reaction Status Date / Time No Known Allergies Allergy Verified 12/04/18 14:30 Home Meds: Home Meds Aspirin [Halfprin] 81 mg PO DAILY 06/18/18 [History] Carbidopa/Levodopa [Sinemet 25-100 mg Tablet] 2 tab PO TID 06/18/18 [History] Cyanocobalamin (Vitamin B-12) [B-12] 1 tab PO DAILY 06/18/18 [History] atorvaSTATin [Lipitor] 40 mg PO DAILY 06/18/18 [History] Albuterol Sulfate [Albuterol Sulfate Hfa] 2 puff IH Q4H PRN 11/20/18 [History] Sertraline [Zoloft] 100 mg PO DAILY 11/20/18 [History] Past Medical History Cardiovascular History: Reports: High Cholesterol, Hypertension Respiratory History: Reports: COPD Genitourinary History: Reports: Renal Calculus Neurological History: Reports: Parkinson's Endocrine/Metabolic History: Reports: Diabetes, Type II - Past Surgical History Cardiovascular Surgical History: Reports: Coronary Artery Stent GI Surgical History: Reports: Hernia Repair/Other Social & Family History - Family History Family Medical History: Noncontributory - Tobacco Use Smoking Status *Q: Unknown Ever Smoked ED ROS GENERAL - Review of Systems Review Of Systems: See Below Constitutional: Reports: No Symptoms HEENT: Reports: No Symptoms Respiratory: Reports: Pleuritic Chest Pain (chest pain post fall several weeks ago) Cardiovascular: Reports: Other (bradycardia during transport in ambulance) Endocrine: Reports: No Symptoms GI/Abdominal: Reports: No Symptoms : Reports: No Symptoms Musculoskeletal: Reports: Back Pain Skin: Reports: No Symptoms Neurological: Reports: Tremors (hx. of parkinson's family states this is worsening), Weakness Psychiatric: Reports: No Symptoms Hematologic/Lymphatic: Reports: No Symptoms Immunologic: Reports: No Symptoms ED EXAM, GENERAL - Physical Exam Exam: See Below Exam Limited By: No Limitations General Appearance: Alert, WD/WN, No Apparent Distress Eye Exam: Bilateral Eye: EOMI, Normal Fundi, Normal Inspection, PERRL Throat/Mouth: Normal Inspection, Normal Lips, Normal Teeth, Normal Oropharynx, Normal Voice Head: Atraumatic, Normocephalic Neck: Normal Inspection, Supple, Non-Tender, Full Range of Motion Respiratory/Chest: No Respiratory Distress, Lungs Clear, Normal Breath Sounds, No Accessory Muscle Use, Chest Non-Tender Cardiovascular: Normal Peripheral Pulses, Regular Rate, Rhythm, No Edema, No Gallop, No JVD, No Murmur GI/Abdominal: Soft, Non-Tender, No Organomegaly, No Distention, No Mass (Male) Exam: Deferred Rectal (Males) Exam: Deferred Back Exam: Muscle Spasm, Vertebral Tenderness Extremities: Normal Inspection, No Pedal Edema, Limited Range of Motion Neurological: Alert, Oriented, CN II-XII Intact, Normal Cognition, Normal Reflexes, No Motor/Sensory Deficits, Other (No acute neurologial changes to lower extremities) Psychiatric: Normal Affect, Normal Mood Skin Exam: Warm, Dry, Intact, Normal Color, No Rash EKG INTERPRETATION Rhythm: NSR Junction: Normal P-Wave: Present QRS: Normal ST-T: Normal QT: Normal Course - Vital Signs Last Recorded V/S: Last Vital Signs Temp 36.7 C 12/04/18 14:10 Pulse 60 07/22/19 16:27 Resp 18 12/04/18 16:27 BP 131/67 12/04/18 16:27 Pulse Ox 90 L 12/04/18 16:27 - Orders/Labs/Meds Orders: Active Orders 24 hr Category Date Time Status Cardiac Monitoring [RC] CONTINUOUS Care 12/04/18 14:26 Active EKG Documentation Completion [RC] STAT Care 12/04/18 14:19 Active UA W/MICROSCOPIC [URIN] Stat Lab 12/04/18 14:21 Ordered Labs: Laboratory Tests 12/04/18 12/04/18 12/04/18 Range/Units 14:32 14:32 14:32 WBC 9.5 (4.0-10.0) x10^3/uL RBC 5.06 (4.5-6.0) x10^6/uL Hgb 15.1 (14.0-18.0) g/dL Hct 44.2 (40.0-52.0) % MCV 87.4 (78.0-93.0) fL MCH 29.8 (26.0-32.0) pg MCHC 34.2 (32.0-36.0) g/dL RDW Coeff of Ace 14.9 (10.0-15.0) % Plt Count 166 (130-400) x10^3/uL Add Manual Diff Yes Neutrophils % (Manual) 71 (50-80) % Band Neutrophils % 5 (0-6) % Lymphocytes % (Manual) 10 L (25-50) % Monocytes % (Manual) 10 (2-11) % Eosinophils % (Manual) 1 (0-4) % Metamyelocytes % 3 H (0) % Hypersegmented Neuts Few H Platelet Estimate Adequate PT 11.1 (10.0-12.8) SEC INR 1.0 L (2.0-3.5) Sodium 144 (136-145) mmol/L Potassium 3.1 L (3.5-5.1) mmol/L Chloride 104 (98-107) mmol/L Carbon Dioxide 29 (21-32) mmol/L Anion Gap 14.1 (10-20) mmol/L BUN 12 (7-18) mg/dL Creatinine 1.0 (0.70-1.30) mg/dL Est Cr Clr Drug Dosing TNP Estimated GFR (MDRD) > 60 Glucose 97 (74-106) mg/dL Calcium 8.7 (8.5-10.1) mg/dL Corrected Calcium 9.42 (8.5-10.1) mg/dL Phosphorus 2.8 (2.6-4.7) mg/dL Magnesium 1.7 L (1.8-2.4) mg/dL Total Bilirubin 0.8 (0.2-1.0) mg/dL AST 20 (15-37) U/L ALT 7 L (16-63) U/L Alkaline Phosphatase 152 H (46-116) U/L POC Troponin I (0.00-0.08) ng/mL C-Reactive Protein 1.0 H (<=0.9) mg/dL Total Protein 6.5 (6.4-8.2) g/dL Albumin 3.1 L (3.4-5.0) g/dL Globulin 3.4 Albumin/Globulin Ratio 0.91 TSH, Ultra Sensitive 2.310 (0.358-3.74) uIU/mL 12/04/18 Range/Units 14:44 WBC (4.0-10.0) x10^3/uL RBC (4.5-6.0) x10^6/uL Hgb (14.0-18.0) g/dL Hct (40.0-52.0) % MCV (78.0-93.0) fL MCH (26.0-32.0) pg MCHC (32.0-36.0) g/dL RDW Coeff of Ace (10.0-15.0) % Plt Count (130-400) x10^3/uL Add Manual Diff Neutrophils % (Manual) (50-80) % Band Neutrophils % (0-6) % Lymphocytes % (Manual) (25-50) % Monocytes % (Manual) (2-11) % Eosinophils % (Manual) (0-4) % Metamyelocytes % (0) % Hypersegmented Neuts Platelet Estimate PT (10.0-12.8) SEC INR (2.0-3.5) Sodium (136-145) mmol/L Potassium (3.5-5.1) mmol/L Chloride (98-107) mmol/L Carbon Dioxide (21-32) mmol/L Anion Gap (10-20) mmol/L BUN (7-18) mg/dL Creatinine (0.70-1.30) mg/dL Est Cr Clr Drug Dosing Estimated GFR (MDRD) Glucose (74-106) mg/dL Calcium (8.5-10.1) mg/dL Corrected Calcium (8.5-10.1) mg/dL Phosphorus (2.6-4.7) mg/dL Magnesium (1.8-2.4) mg/dL Total Bilirubin (0.2-1.0) mg/dL AST (15-37) U/L ALT (16-63) U/L Alkaline Phosphatase (46-116) U/L POC Troponin I 0.01 (0.00-0.08) ng/mL C-Reactive Protein (<=0.9) mg/dL Total Protein (6.4-8.2) g/dL Albumin (3.4-5.0) g/dL Globulin Albumin/Globulin Ratio TSH, Ultra Sensitive (0.358-3.74) uIU/mL Meds: Medications Discontinued Medications Generic Name Dose Route Start Last Admin Trade Name Freq PRN Reason Stop Dose Admin Morphine Sulfate 4 mg 12/04/18 15:15 12/04/18 15:21 Morphine IVPUSH 12/04/18 15:16 4 mg ONETIME ONE Administration Morphine Sulfate 4 mg 12/04/18 16:19 12/04/18 16:26 Morphine IVPUSH 12/04/18 16:20 4 mg ONETIME ONE Administration Ondansetron HCl 4 mg 12/04/18 15:15 12/04/18 15:18 Zofran IVPUSH 12/04/18 15:16 4 mg ONETIME ONE Administration - Radiology Interpretation Free Text/Narrative:: CT brain is negative for acute pathology. chest x-ray negative for acute pathology. L spine CT shows L1 compression fx. with 50% vertebral height loss, without retropulsion of the posterior vertebral body cortex and no involvement of the posterior elements. Departure - Departure Time of Disposition: 16:52 Disposition: DC/Tfer to Acute Hospital 02 Clinical Impression: Compression fracture of L1 lumbar vertebra, Parkinsons disease - Discharge Information Referrals: Mariaelena Lewis MD [Primary Care Provider] - Forms: ED Department Discharge - Problem List Review Problem List Initiated/Reviewed/Updated: Yes - My Orders Last 24 Hours: My Active Orders 12/04/18 14:19 EKG Documentation Completion [RC] STAT 12/04/18 14:21 UA W/MICROSCOPIC [URIN] Stat 12/04/18 14:26 Cardiac Monitoring [RC] CONTINUOUS - Assessment/Plan Last 24 Hours: My Active Orders 12/04/18 14:19 EKG Documentation Completion [RC] STAT 12/04/18 14:21 UA W/MICROSCOPIC [URIN] Stat 12/04/18 14:26 Cardiac Monitoring [RC] CONTINUOUS Plan: Pt. was given IV morphine in ER but was still in severe pain and unable to sit upright. Images were pushed to [facility]. I spoke with Dr. Aranda, Neurosurgeon, and he advised bedrest and placement of a TLSO "clamshell" splint. Pt. will need to be admitted for pain control and physical therapy, and will require evaluation of his parkinsons, chronic weakness, and falls. I spoke with Dr. Solomon, Hospitalist at the [facility] who accepts the patient in transfer. Pt. will be transported via [facility] ground ambulance. He can receive IV morphine for further pain control. All questions were answered. He is a code 2.
== END 2018-12-04 17:25 | disposition short-term general hospital (02) ==
LOC: VM.ED 14:09
DX: S32.010A Wedge compression fracture of first lumbar vertebra, initial encounter for closed fracture (principal); W18.39XA Other fall on same level, initial encounter; G20 Parkinson's disease; Z79.82 Long term (current) use of aspirin; Z79.899 Other long term (current) drug therapy; E78.00 Pure hypercholesterolemia, unspecified; I10 Essential (primary) hypertension; J44.9 Chronic obstructive pulmonary disease, unspecified; Z87.442 Personal history of urinary calculi; E11.9 Type 2 diabetes mellitus without complications
CPT/HCPCS: 36415; 70450; 71045; 72131; 80053; 81001; 83735; 84100; 84443; 84484; 85025; 85610; 86140; 93005; 96374; 96375; 96376; 99285; J2270; J2405; 93010; 99284-GF